=== PATIENT | female | born 1950 | race Caucasian/White ===

== ENCOUNTER 2023-12-23 09:52 | Outpatient (RCR) | payer MEDICARE, SELFPAY | END 2023-12-23 23:59 | disposition home or self-care (01) | LOC: RPT 09:52 | PROVIDERS: FAMILY PHYSICIAN Internal Medicine | DX: I97.2 Postmastectomy lymphedema syndrome (principal); C56.9 Malignant neoplasm of unspecified ovary; Z73.6 Limitation of activities due to disability | CPT/HCPCS: 97110; 97140; 97163 ==

== ENCOUNTER 2024-07-21 07:08 | Outpatient (RCR) | payer MEDICARE, SELFPAY | END 2024-07-21 23:59 | disposition home or self-care (01) | LOC: RPT 07:08 | PROVIDERS: ATTENDING PHYSICIAN Internal Medicine Hematology & Oncology; FAMILY PHYSICIAN Internal Medicine | DX: C56.9 Malignant neoplasm of unspecified ovary (principal); C25.3 Malignant neoplasm of pancreatic duct; I97.2 Postmastectomy lymphedema syndrome; Z73.6 Limitation of activities due to disability | CPT/HCPCS: 97163; 97530 ==

== ENCOUNTER 2024-08-17 10:02 | Outpatient (RCR) | payer MEDICARE, SELFPAY | END 2024-08-17 23:59 | disposition home or self-care (01) | LOC: RPT 10:02 | PROVIDERS: ATTENDING PHYSICIAN Internal Medicine Hematology & Oncology; FAMILY PHYSICIAN Internal Medicine | DX: C56.9 Malignant neoplasm of unspecified ovary (principal); C25.3 Malignant neoplasm of pancreatic duct; I97.2 Postmastectomy lymphedema syndrome; Z73.6 Limitation of activities due to disability | CPT/HCPCS: 97110; 97112; 97140 ==

== ENCOUNTER 2024-09-02 10:32 | Outpatient (RCR) | payer MEDICARE, SELFPAY | END 2024-09-02 23:59 | disposition home or self-care (01) | LOC: RPT 10:32 | PROVIDERS: ATTENDING PHYSICIAN Internal Medicine Hematology & Oncology; FAMILY PHYSICIAN Internal Medicine | DX: C56.9 Malignant neoplasm of unspecified ovary (principal); I97.2 Postmastectomy lymphedema syndrome; K59.00 Constipation, unspecified; Z90.13 Acquired absence of bilateral breasts and nipples; Z73.6 Limitation of activities due to disability; C25.3 Malignant neoplasm of pancreatic duct | CPT/HCPCS: 97110; 97164; 97530 ==